=== PATIENT | female | born 2000 ===

== ENCOUNTER 2019-09-13 08:21 | Emergency (ER) | payer OTHER ==
[~2019-09-13] VITALS: Ht 162.6 cm; Wt 60.3 kg
[2019-09-13] MEDS ORDERED: LEVSIN/SL0.125 MG SL (11:51)
[2019-09-13] MEDS ORDERED: PANTOPRAZOLE SO20 MG PO (11:51)
[2019-09-13] MEDS ORDERED: PEPCID AC20 MG PO (11:51)
== END 2019-09-13 12:01 | disposition home or self-care (01) ==
LOC: ER 08:21
DX: K29.60 Other gastritis without bleeding (principal); R10.11 Right upper quadrant pain; Z03.818 Encounter for observation for suspected exposure to other biological agents ruled out